=== PATIENT | female | born 1955 | race Caucasian/White ===

== ENCOUNTER 2020-06-01 11:09 | Emergency (ER) | payer MEDICARE, OTHER, SELFPAY ==
[2020-06-01 11:16] VITALS: BP 124/75; PULSE 114; RESP 16; TEMP 36.6; O2SAT 98
--- NOTE | 2020-06-01 11:27 | ED.SKABFB ---
HPI - Skin/Abscess/Foreign Bdy General Chief complaint: Skin/Abscess/Foreign Body Stated complaint: Rash Time Seen by Provider: 06/01/20 11:27 Source: patient and RN notes reviewed Mode of arrival: ambulatory Limitations: no limitations History of Present Illness HPI narrative: 65-year-old female presents with concern for areas of blistered rash. Reports 4-day history of rash after she did yard work. Reports the rash is very itchy. Reports she has been using Benadryl and cortisone cream with little relief. She denies any swollen lips, swollen tongue, difficulty breathing, nausea, vomiting, diarrhea, fever. MD complaint: rash Related Data Home Medications Medication Instructions Recorded Confirmed fluoxetine 40 mg capsule 40 mg PO QAM 08/23/19 Allergies Allergy/AdvReac Type Severity Reaction Status Date / Time povidone-iodine Allergy Mild HIVES Verified 06/16/18 14:03 iodine Allergy Unknown Unknown Verified 04/28/18 09:20 Penicillins Allergy Unknown Unknown Verified 04/28/18 09:20 phenytoin Allergy Unknown Verified 04/28/18 09:21 Review of Systems Review of Systems: Narrative: CONSTITUTIONAL: Denies malaise, chills, sweats, or fever. EYES: Denies visual changes, redness, or discharge. ENT: Denies swollen lips, swollen tongue, difficulty swallowing CARDIOVASCULAR: Denies chest pain, palpitations, or edema. RESPIRATORY: Denies cough or dyspnea. GASTROINTESTINAL: Denies abdominal pain, nausea, vomiting, diarrhea SKIN: Reports patches of blistered itchy rash on bilateral arms, left leg MUSCULOSKELETAL: Denies myalgia. All systems reviewed & are unremarkable except as noted in HPI and below PMFSH Past Medical History Medical History (Updated 06/01/20 @ 11:32 by Ene Townsend NP) Dyslipidemia History of basal cell cancer ARLYN (obstructive sleep apnea) Unspecified osteoarthritis, unspecified site left hip Urinary, incontinence, stress female Surgical History Surgical History History of facial surgery 2018 - basal cell removed from forehead History of left hip replacement 2015 - right 2018 - left Family History Family History Other Unspecified osteoarthritis, unspecified site Social History Social History (Reviewed 10/04/19 @ 10:37 by Peneloep Licea Smoking status: Never smoker Alcohol intake: current Comments At time of signature, agree with nursing past medical, surgical, social and family history. There is no relevant family history pertinent to the presenting complaint Exam Narrative: Exam Narrative: GENERAL: Well-appearing, well-nourished, and in no acute distress. HEAD: Normocephalic EYES: PERRLA, conjunctivae clear ENT: Nares clear. Mucous membranes moist. Oropharynx without edema, erythema or lesions. Tonsils not enlarged and without exudate. NECK: Supple. CHEST: No respiratory distress. Clear to auscultation. No bony deformities, no asymmetry. Speaks in full sentences. HEART: Regular rate and rhythm. No murmur heard. SKIN: Warm, dry small patches of erythematous vesicular rash noted to left arm, right arm, left leg NEURO: Alert and oriented x3. PSYCH: Normal mood and affect Course Course Emergency Course: Patient is aware of diagnosis, understands and agrees to treatment plan. Anticipatory guidance given. Patient agrees to follow-up as directed and is aware of reasons to seek care at the emergency department. Portions of this record may have been created with voice recognition software Vital Signs Vital signs: Vital Signs Temperature 97.8 F 06/01/20 11:16 Pulse Rate 114 H 06/01/20 11:16 Respiratory Rate 16 06/01/20 11:16 Blood Pressure 124/75 06/01/20 11:16 Pulse Oximetry 98 06/01/20 11:16 Temperature 97.8 F 06/01/20 11:16 Pulse Rate 114 H 06/01/20 11:16 Respiratory Rate 16 06/01/20 11:16 Blood Pressure 124/75 06/01/20 11:1
== END 2020-06-01 11:41 | disposition home or self-care (01) ==
PROVIDERS: Emergency Provider Nurse Practitioner; PCP Family Medicine
DX: L25.5 Unspecified contact dermatitis due to plants, except food (principal); E78.5 Hyperlipidemia, unspecified; G47.33 Obstructive sleep apnea (adult) (pediatric); M16.12 Unilateral primary osteoarthritis, left hip; Z85.828 Personal history of other malignant neoplasm of skin
CPT/HCPCS: 99213; G0463

== ENCOUNTER → 2020-09-01 14:47 | Outpatient (CLI) | payer MEDICARE, OTHER, SELFPAY ==
--- NOTE | ~2020-09-01 | MM_ITS ---
EXAMINATION: MM screening gale BI w ilan HISTORY: Screening mammogram TECHNIQUE: Craniocaudal and mediolateral oblique 3-D tomosynthesis images were obtained and synthetic 2-D images were generated. CAD analysis was submitted and interpreted. COMPARISON: 07/02/2019, 06/20/2018, 06/06/2017 bilateral digital screening mammogram examinations BREAST PARENCHYMAL COMPOSITION: There are scattered areas of fibroglandular density. FINDINGS: There is no evidence of suspicious mass, calcification, or architectural distortion to sugg est malignancy in either breast. There has been no suspicious interval change. IMPRESSION: 1. No mammographic evidence of malignancy. 2. Recommend routine screening mammography in one year. BI-RADS Category 1: Negative Reviewed, dictated and finalized at location A. SPECIALIST
== END ==
PROVIDERS: Visit Provider Physician Assistant
DX: Z12.31 Encounter for screening mammogram for malignant neoplasm of breast (principal)
CPT/HCPCS: 77063; 77067

== ENCOUNTER 2021-04-01 14:18 | Inpatient (IN) | payer MEDICARE, OTHER, SELFPAY ==
--- NOTE | ~2021-04-01 | CT_ITS ---
EXAMINATION: CT brain wo con DATE: 04/01/2021 15:05 INDICATION: Seizure. Altered mental status. TECHNIQUE: Computed tomography (CT) of the head was performed without intravenous contrast. The mA wa s adjusted according to patient size. Iterative reconstruction technique was employed. The dose-lengt h product was 605.33 mGy-cm. COMPARISON: None FINDINGS: There are changes of left-sided craniotomy. There is chronic encephalomalacia in the left p arietal lobe. There is an old lacunar infarct in the left basal ganglia. There are scattered areas of low attenuation in the cerebral white matter, which is within normal limits for the patient's age. There is no intracranial hemorrhage, acute infarction, or abnormal intracranial mass lesion. The vent ricles are normal in size. The orbits are normal. The paranasal sinuses are clear. The mastoid air ce lls are normal. IMPRESSION: 1. Chronic encephalomalacia in the left parietal lobe. 2. Old lacunar infarct in the left basal ganglia. Reviewed, dictated and finalized at location B.
--- NOTE | ~2021-04-01 | MR_ITS ---
EXAMINATION: MR brain/brain stem wo con DATE: 04/02/2021 10:55 INDICATION: Seizure. TECHNIQUE: Magnetic resonance imaging (MRI) of the brain and brainstem was performed without intraven ous contrast. Sequences included sagittal and axial T1-weighted FSE, axial diffusion-weighted FS EPI, axial T2*-weighted GRE, axial T2-weighted FLAIR Propeller, and axial T2-weighted Propeller. Apparent diffusion coefficient (ADC) maps were created. COMPARISON: Brain MRI 01/08/2004, head CT 04/01/2021 FINDINGS: There is chronic encephalomalacia in left parietal lobe. There are changes of left-sided cr aniotomy. There are scattered areas of nonspecific increased T2-weighted signal intensity in the cere bral white matter and amy, which is within normal limits for the patient's age. There are prominent perivascular spaces in the basal ganglia. The ventricles are normal in size. The orbits are normal. T he paranasal sinuses are clear. The mastoid air cells are normal. IMPRESSION: 1. Chronic encephalomalacia in the left parietal lobe. Reviewed, dictated and finalized at location B.
--- NOTE | ~2021-04-01 | XR_ITS ---
EXAMINATION: XR chest 1V DATE: 04/01/2021 15:09 INDICATION: Vomiting. Shortness of breath. TECHNIQUE: A single frontal view of the chest was obtained. COMPARISON: Chest 2 views 05/03/2018 FINDINGS: The chest demonstrates clear lungs without pneumonia, pleural effusion, or pneumothorax. Th e heart size is normal. IMPRESSION: 1. No acute cardiopulmonary disease. Reviewed, dictated and finalized at location B.
[2021-04-01 14:20] VITALS: BP 127/78; PULSE 113; RESP 26; TEMP 36.8; O2SAT 96
[2021-04-01 14:30] VITALS: PULSE 113
[2021-04-01 14:32] LABS: Glucose Point of Care 120 mg/dl (65-105)
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
--- NOTE | 2021-04-01 14:36 | ECG_ITS ---
Measurements Intervals [place] Rate: 89 P: 18 SD: 95 QRS: 12 QRSD: 126 T: 31 QT: 348 QTc: 424 Interpretive Statements SINUS RHYTHM WITH SHORT SD INTERVAL RIGHT BUNDLE BRANCH BLOCK BASELINE ARTIFACT- II, III, AVR, AVF, V1, V3-V6 ABNORMAL ECG Electronically Signed On 04-01-2021 15:53:34 CDT by Chuck Lui D.O.
[2021-04-01 14:45] VITALS: BP 114/69; PULSE 98; RESP 20; O2SAT 98
[2021-04-01] MEDS: ONDANSETRON INJ 4 MG/2 ML VIAL (14:52)
[2021-04-01 15:05] LABS: Basophils Percent Auto 0.4 % (0.2-1.2); Eosinophils Absolute Auto 0.1 K/mm3 (0-0.3); Eosinophils Percent Auto 1.1 % (0-4.4); Hematocrit 43.8 % (37.0-47.0); Hemoglobin 14.3 g/dL (12.0-15.0); Immature Granulocyte Absolute 0.07 K/mm3 (0.00-0.031); Immature Granulocyte Percent A 0.8 % (0-0.5); Lymphocytes Absolute Auto 2.39 K/mm3 (0.9-3.2); Lymphocytes Percent Auto 28.2 % (18.3-44.2); Mean Corpuscular HGB Conc 32.6 g/dl (32-36); Mean Corpuscular Hemoglobin 30.6 pg (26-34); Mean Corpuscular Volume 93.8 fl (80-100); Mean Platelet Volume 9.2 fl (7.4-10.4); Monocytes Absolute Auto 0.7 K/mm3 (0.1-0.6); Monocytes Percent Auto 8.7 % (2.6-8.5); Neutrophils Absolute Auto 5.2 K/mm3 (1.3-6.7); Neutrophils Percent Auto 60.8 % (45.5-73.1); Platelet Count Result 282 k/mm3 (150-375); Red Blood Count 4.67 M/mm3 (4.2-5.4); Red Cell Distribution Width 13.1 % (11.5-14.5); White Blood Count 8.5 K/mm3 (4.5-10.0)
[2021-04-01 15:15] LABS: Alanine Aminotransferase 23 U/L (4-35); Albumin Level 4.5 g/dL (3.5-5.1); Alkaline Phosphatase 112 U/L (38-126); Anion Gap 14 mmol/L (8-16); Aspartate Amino Transferase 27 U/L (14-36); Bilirubin,Total 0.5 mg/dL (0.2-1.3); Blood Urea Nitrogen 21 mg/dL (7-17); Calcium 9.8 mg/dL (8.4-10.2); Carbon Dioxide 18 mmol/L (22-30); Chloride 105 mmol/L (98-107); Estimated Glomerular Filt Rate 41; Glucose 115 mg/dL (65-110); Potassium 4.5 mmol/L (3.4-5.0); Sodium 137 mmol/L (137-145)
[2021-04-01 15:19] LABS: Lactic Acid Reflex 7.2 mmol/L (0.7-2.1)
[2021-04-01] MEDS: SODIUM CHLORIDE 0.9% IV 1,000 ML 999 ML IV CONT (16:04)
[2021-04-01] MEDS: levETIRAcetam 500MG/NACL 100ML 500 MG/100 ML BAG 400 MG IVPB (17:12)
[2021-04-01 18:02] LABS: Reflex Lactic Acid Yes or No Add Lactic
[2021-04-01 18:40] LABS: Lactic Acid 0.9 mmol/L (0.7-2.1)
[2021-04-01 19:38] VITALS: BP 118/62; PULSE 88; RESP 18; O2SAT 95
--- NOTE | 2021-04-01 20:04 | ADMGEN ---
This patient, Mikala Goode, was admitted to 2 Medical Room 259-01. Patient/family oriented to hospital policies and general routines including ID bracelet, bed and alarms, visiting hours, pain management, procedures, bathroom and other care routines, personal items, smoking policy, room service/diet, and visiting hours. Information on how to activate the Rapid Response Team has been discussed. Patient/Family are encouraged to report perceived risks to care and to ask questions if they do not understand what they are told or what they should do.
[2021-04-01 20:30] VITALS: PULSE 85
[2021-04-01 22:00] VITALS: BP 121/54; PULSE 81; RESP 18; TEMP 36.4; O2SAT 96; BMI 25.4
--- NOTE | 2021-04-01 22:41 | PC.NURSE ---
Called the pt's Shawn to confirm the pt's home medications. The asked if taking too many of one of her drugs could cause a seizure. I proceeded to ask if the pt had made mention of any intention of doing self harm or if anyone had witnessed her take her medications. Shawn stated that no she had not stated anything of that nature nor did anyone witness her take her pills. The proceeded to state that his had been very depressed and he doesn't know what is going on with her. He also stated concerns about a brain tumor re-emerging from 30+years ago when she had brain surgery. I stated the pt had a negative brain CT. The also stated that he would like a MRI ordered to rule things out. I said the doctor may or may not order one but that I would express his concerns to the admitting provider.
[2021-04-02] VITALS (7 sets, daily range): BP systolic 104–124; BP diastolic 44–60; PULSE 62–93; RESP 16–20; TEMP 36–36.2; O2SAT 97–99; BMI 25.4
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
--- NOTE | 2021-04-02 06:00 | ECHO_ITS ---
Patient Info Name: Mikala Goode Age: 66 years : 1955 Gender: Female Ht: 61 in Wt: 134 lbs BSA: 1.63 m2 HR: 75 bpm BP: 116 / 49 mmHg Heart Rhythm: Sinus Rhythm Technical Quality: Good Exam Date: 04/02/2021 12:02 PM Exam Location: [facility] Pulmonary Exam Room: 259 Patient Status: Inpatient Admit Date: 04/02/2021 Staff Ordering Physician: Denita Mendoza MD School Bus Inspector: Gudelia Eckert RDCS Attending Provider: Ha Traylor MD Referring Physician: Reji GONSALES; Exam Type: CA echo doppler color flow Study Info Indications - SEIZURE Complete two-dimensional, color flow and Doppler transthoracic echocardiogram is performed. Summary 1. Complete two-dimensional, color flow and Doppler transthoracic echocardiogram is performed. 2. Left ventricular chamber size, wall thickness, systolic function are normal with no regional wall motion abnormalities with an estimated ejection fraction of 60-65%. Diastolic dysfunction is present. 3. Left atrial chamber dimension is mildly enlarged. 4. Mild pulmonary hypertension, estimated pulmonary arterial systolic pressure is 40 mmHg. 5. Right ventricular chamber dimension is mildly enlarged with normal function.. 6. No significant valve disease. 7. Normal sinus rhythm. Left Ventricle Left ventricular chamber dimension is normal. Left ventricular systolic function is normal, estimated at 60-65%. There is no increased left ventricular wall thickness. Left ventricular septal wall motion is normal. The left ventricular diastolic function is abnormal. Left ventricular chamber size, wall thickness, systolic function are normal with no regional wall motion abnormalities with an estimated ejection fraction of 60-65%. Diastolic dysfunction is present. Right Ventricle Right ventricular chamber dimension is mildly enlarged with normal function.. Right ventricular systolic function is normal. Left Atria Left atrial chamber dimension is mildly enlarged. Right Atria Right atrial chamber dimension is normal. Aortic Valve The aortic valve is trileaflet. There is no aortic valve sclerosis. There is no aortic valve stenosis. There is no aortic valve regurgitation. Pulmonic Valve The pulmonic valve is normal. There is no pulmonic valve stenosis. There is no pulmonic regurgitation. Mitral Valve The mitral valve has normal leaflets. There is no mitral valve stenosis. There is no mitral valve regurgitation. Tricuspid Valve The tricuspid valve leaflets are normal. There is no significant tricuspid valve stenosis. There is trace tricuspid valve regurgitation. Mild pulmonary hypertension, estimated pulmonary arterial systolic pressure is 40 mmHg. Pericardium/Pleural The pericardium appears normal. There is no pericardial effusion. Inferior Vena Cava Normal inferior vena cava with >50% collapse upon inspiration consistent with Empty right atrial pressure, 10 mmHg. Aorta The aortic root size at the sinus of Valsalva is normal. The prox ascending aorta size is normal. Left Ventricular Outflow Tract Name Value Normal LVOT 2D LVOT Diameter 2.0 cm LVOT Doppler
[2021-04-02] MEDS: levETIRAcetam 500MG/NACL 100ML 500 MG/100 ML BAG 400 MG IVPB (06:23)
--- NOTE | 2021-04-02 08:00 | PC.NURSE ---
Patients called this morning to notify staff that patients buproprion dose was recently increased from 150mg to 300mg. She took this first dose yesterday prior to seizure like activity. Family concerned this increase in dosage could have potentially caused her seizure yesterday. Spoke with Dr. Traylor and I received orders to decrease the dose scheduled for this morning back down to 150mg. Primary RN, Maira, also notified.
[2021-04-02] MEDS: FLUoxetine HCL 20 MG CAPSULE 40 MG PO (09:05)
[2021-04-02] MEDS: ENOXAPARIN 40 MG/0.4 ML SYRINGE SUB-Q (09:05)
[2021-04-02] MEDS: DICLOFENAC SOD 75 MG TABLET.EC PO (09:05)
[2021-04-02] MEDS: LOSARTAN POTASSIUM 50 MG TABLET PO (09:05)
[2021-04-02] MEDS: buPROPion HCL XL (24 HR) 150 MG TABCR PO (09:05)
[2021-04-02 11:30] LABS: Magnesium 2.4 mg/dL (1.6-2.3)
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
[2021-04-04 07:20] LABS: Prolactin 112.1 ng/mL (***)
== END 2021-04-02 17:20 | disposition home or self-care (01) | DRG 918 ==
LOC: ANHED 18:11 → ANH2MED 19:41
PROVIDERS: Admitting Provider Family Medicine; Emergency Provider Emergency Medicine; PCP Family Medicine; Visit Provider Family Medicine
DX: T43.291A Poisoning by other antidepressants, accidental (unintentional), initial encounter (principal); G40.89 Other seizures; E78.5 Hyperlipidemia, unspecified; G47.33 Obstructive sleep apnea (adult) (pediatric); I10 Essential (primary) hypertension; N32.81 Overactive bladder; R32 Unspecified urinary incontinence; R29.701 NIHSS score 1; F41.1 Generalized anxiety disorder; F32.9 Major depressive disorder, single episode, unspecified; Z96.643 Presence of artificial hip joint, bilateral; Z85.828 Personal history of other malignant neoplasm of skin
CPT/HCPCS: 36415; 70450; 70551; 71045; 80053; 82948; 83605; 83735; 84146; 85025; 93005; 93306; 96361; 96365; 96372; 96375; 99285; A9270; G0378; J1650; J1953; J2405; J7030

== ENCOUNTER → 2021-10-22 13:15 | Outpatient (CLI) | payer MEDICARE, OTHER, SELFPAY ==
--- NOTE | ~2021-10-22 | XR_ITS ---
EXAMINATION: XR lumbar spine 2-3V DATE: 10/22/2021 13:41 INDICATION: Low back pain TECHNIQUE: Anteroposterior and lateral views of the lumbar spine, and cone-down lateral view of the l umbosacral junction were obtained. COMPARISON: 09/02/2010 FINDINGS: There is no fracture, dislocation, or subluxation. There is severe loss of intervertebral d isc space height at L3-4, L4-5, and L5-S1 and moderate loss of intervertebral disc space height at L2 -3 all demonstrate interval worsening since the comparison examination. The vertebral body heights ar e maintained. Small degenerative osteophytes project from the anterior endplates of multiple vertebra l bodies. 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 There are changes of interv al bilateral total hip arthroplasty. IMPRESSION: 1. Severe lumbar spondylosis with interval worsening. Reviewed, dictated and finalized at location B. INGS TRIMMER
--- NOTE | ~2021-10-22 | MM_ITS ---
EXAMINATION: MM screening gale BI w ilan HISTORY: Screening TECHNIQUE: Craniocaudal and mediolateral oblique 3-D tomosynthesis images were obtained and synthetic 2-D images were generated. CAD analysis was submitted and interpreted. COMPARISON: Comparison to multiple prior studies sequentially, with oldest reviewed study dated 05/15. BREAST PARENCHYMAL COMPOSITION: There are scattered areas of fibroglandular density. FINDINGS: There is no evidence of suspicious mass, calcification, or architectural distortion to sugg est malignancy in either breast. There has been no suspicious interval change. IMPRESSION: 1. No mammographic evidence of malignancy. 2. Recommend routine screening mammography in one year. BI-RADS Category 1: Negative Reviewed, dictated and finalized at location A. [employer] MANAGER IN TRAINING
== END ==
PROVIDERS: PCP Family Medicine; Visit Provider Physician Assistant
DX: Z12.31 Encounter for screening mammogram for malignant neoplasm of breast (principal); M54.50 Low back pain, unspecified; M47.816 Spondylosis without myelopathy or radiculopathy, lumbar region
CPT/HCPCS: 72100; 77063; 77067

== ENCOUNTER → 2021-11-02 08:17 | Outpatient (CLI) | payer MEDICARE, OTHER, SELFPAY ==
--- NOTE | ~2021-11-02 | MR_ITS ---
EXAMINATION: MR lumbar spine wo [facility] EXAM DATE: 11/02/2021 08:47 INDICATION: Degenerative joint disease of lumbar spine. TECHNIQUE: Multi-sequential, multiplanar MR images of the lumbar spine were obtained without contrast . Sagittal T1, T2, T2 fat saturation images. Axial T2 weighted images. There is no prior study for comparison. FINDINGS: There is moderate to severe disc disease L2-S1. The vertebral bodies are aligned in the AP dimension. The conus medullaris terminates at the L1/2 level and has normal signal intensity and morp hology. There are no suspicious marrow signal abnormalities. Paraspinal soft tissue is unremarkable. Level by level evaluation: T11-12: There is a minimal diffuse disc bulge. Facet arthropathy: Mild to moderate left, mild right. Neural foraminal stenosis: No stenosis. Central canal stenosis: No stenosis. T12-L1: Disc does not extend beyond the endplate margin. Facet arthropathy: None. Neural foraminal stenosis: No stenosis. Central canal stenosis: No stenosis. L1-L2: There is a minimal diffuse disc bulge. Facet arthropathy: Mild. Neural foraminal stenosis: No stenosis. Central canal stenosis: No stenosis. L2-L3: There is a mild diffuse disc bulge. Facet arthropathy: Moderate right, mild to moderate left. Neural foraminal stenosis: Mild to moderate left, mild right. Central canal stenosis: No stenosis. L3-L4: There is a mild diffuse disc bulge. Facet arthropathy: Mild to moderate. Neural foraminal stenosis: Mild to moderate left, mild right. Central canal stenosis: Mild. L4-L5: There is a mild to moderate diffuse disc bulge. Facet arthropathy: Mild to moderate. Neural foraminal stenosis: Mild to moderate left, mild right. Central canal stenosis: Mild. L5-S1: There is a mild to moderate diffuse disc bulge. Facet arthropathy: Mild to moderate. Neural foraminal stenosis: Moderate bilateral. Central canal stenosis: Mild. IMPRESSION: 1. Moderate to severe disc disease. 2. L5-S1 moderate bilateral neural foraminal stenosis, less at the other levels. Reviewed, dictated and finalized at location G. IMPRESSION: 1. Moderate to severe disc disease. 2. L5-S1 moderate bilateral neural foraminal stenosis, less at the other level s.
== END ==
PROVIDERS: PCP Family Medicine; Visit Provider Family Medicine
DX: M47.816 Spondylosis without myelopathy or radiculopathy, lumbar region (principal); M51.36 Other intervertebral disc degeneration, lumbar region; M48.07 Spinal stenosis, lumbosacral region
CPT/HCPCS: 72148